=== PATIENT | female | born 1990 | race American Indian/Alaskan Native ===

== ENCOUNTER 2018-01-30 16:44 | Emergency (ER) | payer BC ==
[2018-01-30 16:59] VITALS: BP 134/77
[2018-01-30 17:37] LABS: Basophils # (Auto) 0.1 K/mm3 (0.0-0.1); Basophils % (Auto) 0.6 % (0.0-1.8); Eosinophils # (Auto) 0.1 K/mm3 (0.0-0.4); Eosinophils % (Auto) 0.6 % (0.0-4.3); Hematocrit 25.9 % (30.3-42.9); Hemoglobin 7.4 gm/dl (10.1-14.3); Lymphocytes # (Auto) 4.1 K/mm3 (1.2-5.4); Lymphocytes % (Auto) 40.2 % (13.4-35.0); Mean Corpuscular HGB Conc 29 % (30-34); Monocytes # (Auto) 0.7 K/mm3 (0.0-0.8); Monocytes % (Auto) 6.7 % (0.0-7.3); Platelet Count 508 K/mm3 (140-440); Red Blood Count 4.47 M/mm3 (3.65-5.03)
[2018-01-30 17:38] LABS: Mean Corpuscular Hemoglobin 17 pg (28-32); Mean Corpuscular Volume 58 fl (79-97); Red Cell Distribution Width 22.6 % (13.2-15.2)
[2018-01-30 18:06] LABS: BUN/Creatinine Ratio 8; Blood Urea Nitrogen 5 mg/dL (7-17); Calcium 8.8 mg/dL (8.4-10.2); Hemolysis Index 1
[2018-01-30 18:24] LABS: Bacteria,Urine 4+ /HPF (Negative); Bilirubin,Urine NEG (Negative); Blood,Urine LG (Negative); Color,Urine Red (Yellow); Urobilinogen,Urine < 2.0 mg/dL (<2.0)
[2018-01-30 18:38] LABS: RBC,Urine > 182.0 /HPF (0.0-6.0)
--- NOTE | 2018-01-30 21:10 | Emergency Department Report ---
HPI - General Chief Complaint: Vaginal Bleeding Time Seen by Provider: 01/30/18 20:57 - HPI HPI: Room 3 The patient is a 27-year-old female presenting with a chief complaint of vaginal bleeding. The patient states she's had vaginal bleeding since 2017. The patient states the bleeding has been mostly constant but will stop for a day or 2 intermittently. The patient states when she is bleeding she goes to approximately 10-12 pads per day. Patient complains of left lower quadrant pelvic cramping. Sinus cramping patient's only complaint is feeling tired. The patient states she went to see her primary physician for the first time today and was told to come to the ED secondary to a low hemoglobin Location: [See above] Duration: [See above] Quality: Cramping Severity: Moderate Modifying factors: [see above] Context: [see above] Mode of transportation: Unknown ED Past Medical Hx - Past Medical History Previous Medical History?: Yes Additional medical history: Anemia, heavy uterine bleeding, endometriosis - Surgical History Past Surgical History?: No - Family History Family history: no significant - Social History Smoking Status: Never Smoker Substance Use Type: None (denies illicit drug use), Alcohol (occasional) - Medications Home Medications: Home Medications Medication Instructions Recorded Confirmed Last Taken Type Ferrous Sulfate [Feosol 325 MG tab] 325 mg PO BID #60 tablet 06/14/15 Unknown Rx Ibuprofen [Motrin 800 MG tab] 800 mg PO Q8HR PRN #60 tablet 06/14/15 Unknown Rx Ondansetron [Zofran Odt] 4 mg PO Q6H #14 tab.rapdis 06/14/15 Unknown Rx Sulfamethoxazole/Trimethoprim 1 each PO BID #14 tablet 06/14/15 Unknown Rx [Bactrim DS TAB] traMADol [Ultram 50 MG tab] 50 mg PO Q6HR PRN #14 tablet 06/14/15 Unknown Rx medroxyPROGESTERone ACETATE 10 mg PO QDAY #10 tablet 01/30/18 Unknown Rx [Provera] traMADol [Ultram] 50 mg PO Q6HR PRN #10 tablet 01/30/18 Unknown Rx ED Review of Systems ROS: Stated complaint: ABNORMAL LABS Other details as noted in HPI Constitutional: other ("tired") Cardiovascular: denies: chest pain Gastrointestinal: abdominal pain Genitourinary: abnormal menses Physical Exam - Physical Exam Vital Signs: Vital Signs 01/30/18 01/30/18 16:55 20:55 Temperature 97.8 F Pulse Rate 91 H Respiratory 18 20 Rate Blood Pressure 134/77 O2 Sat by Pulse 100 Oximetry Physical Exam: GENERAL: The patient is well-developed well-nourished female sitting on stretcher not appearing to be in acute distress. [] HEENT: Normocephalic. Atraumatic. Extraocular motions are intact. Patient has moist mucous membranes. NECK: Supple. Trachea midline CHEST/LUNGS: Clear to auscultation. There is no respiratory distress noted. HEART/CARDIOVASCULAR: Regular. There is no tachycardia. There is no gallop rub or murmur. ABDOMEN: Abdomen is soft, with mild discomfort to palpation in the right upper quadrant. There is no rebound or guarding. Patient has normal bowel sounds. There is no abdominal distention. SKIN: There is no rash. There is no edema. There is no diaphoresis. NEURO: The patient is awake, alert, and oriented. The patient is cooperative. The patient has normal speech MUSCULOSKELETAL: There is no evidence of acute injury. PELVIC: Moderate amount of dark red blood in the vault ED Course Vital Signs 01/30/18 01/30/18 16:55 20:55 Temperature 97.8 F Pulse Rate 91 H Respiratory 18 20 Rate Blood Pressure 134/77 O2 Sat by Pulse 100 Oximetry ED Medical Decision Making - Lab Data Result diagrams: 01/30/18 17:01 01/30/18 17:28 Lab Results 01/30/18 01/30/18 01/30/18 Range/Units 17:01 17:01 17:01 WBC 10.2 (4.5-11.0) K/mm3 RBC 4.47 (3.65-5.03) M/mm3 Hgb 7.4 L (10.1-14.3) gm/dl Hct 25.9 L (30.3-42.9) % MCV 58 L (79-97) fl MCH 17 L (28-32) pg MCHC 29 L (30-34) % RDW 22.6 H (13.2-15.2) % Plt Count 508 H (140-440) K/mm3 Lymph % (Auto) 40.2 H (13.4-35.0) % [place] % (Auto) 6.7 (0.0-7.3) % Eos % (Auto) 0.6 (0.0-4.3) % Baso % (Auto) 0.6 (0.0-1.8) % Lymph # 4.1 (1.2-5.4) K/mm3 [place] # 0.7 (0.0-0.8) K/mm3 Eos # 0.1 (0.0-0.4) K/mm3 Baso # 0.1 (0.0-0.1) K/mm3 Seg Neutrophils % 51.9 (40.0-70.0) % Seg Neutrophils # 5.3 (1.8-7.7) K/mm3 Sodium (137-145) mmol/L Potassium (3.6-5.0) mmol/L Chloride (98-107) mmol/L Carbon Dioxide (22-30) mmol/L Anion Gap mmol/L BUN (7-17) mg/dL Creatinine (0.7-1.2) mg/dL Estimated GFR ml/min BUN/Creatinine Ratio % Glucose (65-100) mg/dL Calcium (8.4-10.2) mg/dL HCG, Quant < 2 (0-4) mIU/mL Urine Color (Yellow) Urine Turbidity (Clear) Urine pH (5.0-7.0) Ur Specific [place] (1.003-1.030) Urine Protein (Negative) mg/dL Urine Glucose (UA) (Negative) mg/dL Urine Ketones (Negative) mg/dL Urine Blood (Negative) Urine Nitrite (Negative) Urine Bilirubin (Negative) Urine Urobilinogen (<2.0) mg/dL Ur Leukocyte Esterase (Negative) Urine WBC (Auto) (0.0-6.0) /HPF Urine RBC (Auto) (0.0-6.0) /HPF U Epithel Cells (Auto) (0-13.0) /HPF Urine Bacteria (Auto) (Negative) /HPF Blood Type B POSITIVE Antibody Screen Negative 01/30/18 01/30/18 Range/Units 17:24 17:28 WBC (4.5-11.0) K/mm3 RBC (3.65-5.03) M/mm3 Hgb (10.1-14.3) gm/dl Hct (30.3-42.9) % MCV (79-97) fl MCH (28-32) pg MCHC (30-34) % RDW (13.2-15.2) % Plt Count (140-440) K/mm3 Lymph % (Auto) (13.4-35.0) % [place] % (Auto) (0.0-7.3) % Eos % (Auto) (0.0-4.3) % Baso % (Auto) (0.0-1.8) % Lymph # (1.2-5.4) K/mm3 [place] # (0.0-0.8) K/mm3 Eos # (0.0-0.4) K/mm3 Baso # (0.0-0.1) K/mm3 Seg Neutrophils % (40.0-70.0) % Seg Neutrophils # (1.8-7.7) K/mm3 Sodium 138 (137-145) mmol/L Potassium 3.5 L (3.6-5.0) mmol/L Chloride 100.2 (98-107) mmol/L Carbon Dioxide 21 L (22-30) mmol/L Anion Gap 20 mmol/L BUN 5 L (7-17) mg/dL Creatinine 0.6 L (0.7-1.2) mg/dL Estimated GFR > 60 ml/min BUN/Creatinine Ratio 8 % Glucose 76 (65-100) mg/dL Calcium 8.8 (8.4-10.2) mg/dL HCG, Quant (0-4) mIU/mL Urine Color Red (Yellow) Urine Turbidity Clear (Clear) Urine pH 7.0 (5.0-7.0) Ur Specific [place] 1.011 (1.003-1.030) Urine Protein 30 mg/dl (Negative) mg/dL Urine Glucose (UA) Neg (Negative) mg/dL Urine Ketones Neg (Negative) mg/dL Urine Blood Lg (Negative) Urine Nitrite Neg (Negative) Urine Bilirubin Neg (Negative) Urine Urobilinogen < 2.0 (<2.0) mg/dL Ur Leukocyte Esterase Sm (Negative) Urine WBC (Auto) 12.0 H (0.0-6.0) /HPF Urine RBC (Auto) > 182.0 (0.0-6.0) /HPF U Epithel Cells (Auto) 1.0 (0-13.0) /HPF Urine Bacteria (Auto) 4+ (Negative) /HPF Blood Type Antibody Screen - Radiology Data Radiology results: report reviewed (pelvic ultrasound), image reviewed (pelvic ultrasound) [facility] [address] [place] [address] Ultrasound Report Signed Patient: KAUSHIK REYES MR#: [id number] : 1990 Acct:[id number] Age/Sex: 27 / F ADM Date: 01/30/18 Loc: ED Attending Dr: Ordering Physician: CRISTIANE CALDERA MD Date of Service: 01/30/18 Procedure(s): US transvaginal Accession Number(s): [id number] cc: CRISTIANE CALDERA MD FINAL REPORT PROCEDURE: US TRANSVAGINAL TECHNIQUE: Real-time transvaginal sonography in multiple planes of the pelvis was performed with image documentation. This examination was performed without Doppler. Vascular abnormalities, including ovarian torsion, will not be detectable without Doppler evaluation. CPT 72536 HISTORY: abnormal uterine bleedign COMPARISON: No prior studies are available for comparison. FINDINGS: UTERUS Size: 7 x 4 x 5 cm. Endometrial thickness: 15 mm. Orientation: Retroverted. Cervix: Normal. Fibroids/masses: None. RIGHT Ovary: 3.2 x 2.1 x 2.9 cm. Appearance: Normal. LEFT Ovary: 3.5 x 2.3 x 3.2 cm. Appearance: Normal. Pelvic fluid: Minimal free fluid is noted in the pelvic cavity which is within physiologic limits. Other: None. IMPRESSION: Endometrium is 15 millimeters in thickness. Retroverted uterus Otherwise negative study.. Transcribed By: [facility] [place] Dictated By: BALDEMAR NORIEGA Electronically Authenticated By: BALDEMAR NORIEGA Signed Date/Time: 01/30/182117 DD/ 17 TD/TT: 01/30/182117 - Differential Diagnosis menorrhagia Critical care attestation.: If time is entered above; I have spent that time in minutes in the direct care of this critically ill patient, excluding procedure time. ED Disposition Clinical Impression: Abnormal vaginal bleeding Disposition: -01 TO HOME OR SELFCARE Is pt being admited?: No Does the pt Need Aspirin: No Condition: Stable Instructions: Menorrhagia (ED) Additional Instructions: Return to the emergency department immediately should you develop worsening symptoms, fever, inability to tolerate food or liquid or any other concerns. Prescriptions: medroxyPROGESTERone ACETATE [Provera] 10 mg PO QDAY #10 tablet traMADol [Ultram] 50 mg PO Q6HR PRN #10 tablet PRN Reason: Pain Referrals: PRIMARY CARE, [Primary Care Provider] - 3-5 Days [facility] [Provider Group] - 3-5 Days Time of Disposition: 22:07
--- NOTE | 2018-01-30 21:24 | Ultrasound Report ---
FINAL REPORT PROCEDURE: US TRANSVAGINAL TECHNIQUE: Real-time transvaginal sonography in multiple planes of the pelvis was performed with image documentation. This examination was performed without Doppler. Vascular abnormalities, including ovarian torsion, will not be detectable without Doppler evaluation. CPT 48048 HISTORY: abnormal uterine bleedign COMPARISON: No prior studies are available for comparison. FINDINGS: UTERUS Size: 7 x 4 x 5 cm. Endometrial thickness: 15 mm. Orientation: Retroverted. Cervix: Normal. Fibroids/masses: None. RIGHT Ovary: 3.2 x 2.1 x 2.9 cm. Appearance: Normal. LEFT Ovary: 3.5 x 2.3 x 3.2 cm. Appearance: Normal. Pelvic fluid: Minimal free fluid is noted in the pelvic cavity which is within physiologic limits. Other: None. IMPRESSION: Endometrium is 15 millimeters in thickness. Retroverted uterus Otherwise negative study..
== END 2018-01-30 22:25 | disposition home or self-care (01) ==
LOC: ED 16:44
DX: N93.9 Abnormal uterine and vaginal bleeding, unspecified (principal)
CPT/HCPCS: 36415; 76830; 80048; 81001; 84702; 85025; 86850; 86900; 86901; 99284